=== PATIENT | female | born 1975 | race Caucasian/White ===

== ENCOUNTER 2017-11-16 17:55 | Emergency (ER) | payer BC ==
--- NOTE | 2017-11-16 18:51 | UC ---
UC General HPI - HPI Summary HPI Summary: left back flank and abdomen pain for a couple of day- - History of Current Complaint Hx Obtained From: Patient Hx Last Menstrual Period: 10/24/17 Onset/Duration: Sudden Onset, Lasting Days - 2 Timing: Constant Onset Severity: Moderate Current Severity: Moderate Associated Signs & Symptoms: Positive: Abdominal Pain, Back Pain <Gosia Perez - Last Filed: 11/21/17 15:03> <Lois Pérez - Last Filed: 11/21/17 16:11> - History of Current Complaint Chief Complaint: UCBackPain Stated Complaint: BACK PAIN,L ARM,FACE NUMBNESS Time Seen by Provider: 11/16/17 18:13 - Allergy/Home Medications Allergies/Adverse Reactions: Allergies Allergy/AdvReac Type Severity Reaction Status Date / Time No Known Allergies Allergy Verified 11/16/17 18:03 PMH/Surg Hx/FS Hx/Imm Hx Previously Healthy: Yes - Surgical History Surgical History: Yes Surgery Procedure, Year, and Place: APPENDECTOMY, CHOLECYSTECTOMY - Family History Known Family History: Positive: None - Social History Occupation: Employed Full-time Lives: With Family Alcohol Use: Occasionally Alcohol Amount: 3 GLASSES/WEEK Substance Use Type: None Smoking Status (MU): Never Smoked Tobacco <Gosia Perez - Last Filed: 11/21/17 15:03> Review of Systems Constitutional: Negative Skin: Negative Eyes: Negative ENT: Negative Respiratory: Negative Cardiovascular: Negative Gastrointestinal: Abdominal Pain Genitourinary: Negative Motor: Negative Neurovascular: Negative Musculoskeletal: Arthralgia - laft flank pain Neurological: Negative Psychological: Negative Is Patient Immunocompromised?: No All Other Systems Reviewed And Are Negative: Yes <Gosia Perez - Last Filed: 11/21/17 15:03> Physical Exam Triage Information Reviewed: Yes Appearance: No Pain Distress, Well-Nourished, Ill-Appearing - mild Vital Signs: Initial Vital Signs Temp 98.4 F 11/16/17 17:56 Pulse 72 11/16/17 17:56 Resp 16 11/16/17 17:56 BP 132/87 11/16/17 17:56 Pulse Ox 100 11/16/17 17:56 Vital Signs Reviewed: Yes Eye Exam: Normal Eyes: Positive: Conjunctiva Clear ENT Exam: Normal ENT: Positive: Normal ENT inspection, Hearing grossly normal, Pharynx normal, TMs normal, Uvula midline. Negative: Tonsillar swelling, Tonsillar exudate, Trismus, Muffled voice, Hoarse voice, Dental tenderness, Sinus tenderness Dental Exam: Normal Neck exam: Normal Neck: Positive: Supple, Nontender, No Lymphadenopathy Respiratory Exam: Normal Respiratory: Positive: Chest non-tender, Lungs clear, Normal breath sounds, No respiratory distress, No accessory muscle use Cardiovascular Exam: Normal Cardiovascular: Positive: RRR, No Murmur, Pulses Normal, Brisk Capillary Refill Abdominal Exam: Other Abdomen Description: Positive: No Organomegaly, Soft, CVA Tenderness (L). Negative: CVA Tenderness (R) Bowel Sounds: Positive: Present Musculoskeletal Exam: Normal Musculoskeletal: Positive: Strength Intact, ROM Intact, No Edema Neurological Exam: Normal Neurological: Positive: Alert, Muscle Tone Normal Psychological Exam: Normal Psychological: Positive: Normal Response To Family Skin Exam: Normal <Gosia Perez - Last Filed: 11/21/17 15:03> Vital Signs: Initial Vital Signs Temp 98.4 F 11/16/17 17:56 Pulse 72 11/16/17 17:56 Resp 16 11/16/17 17:56 BP 132/87 11/16/17 17:56 Pulse Ox 100 11/16/17 17:56 <Lois Pérez - Last Filed: 11/21/17 16:11> Diagnostics - Laboratory Diagnostic Studies Completed/Ordered: ua-+2 leuks, +2 blood sg<1.005 - Radiology No standard instances Xray Interpretation: Positive (See Comments) Radiology Interpretation Completed By: Radiologist - colitis decreding colon, no evidence of renal calculi <Gosia Perez - Last Filed: 11/21/17 15:03> Course/Dx - Course Course Of Treatment: Augmentin, clear liquid and advance diet slowly, follow with pcp - Differential Dx - Multi-Symptom Provider Diagnoses: MIld Cololitis, hematuria <Gosia Perez - Last Filed: 11/21/17 15:03> Discharge <Gosia Perez - Last Filed: 11/21/17 15:03> <Lois Pérez - Last Filed: 11/21/17 16:11> - Discharge Plan Condition: Stable Disposition: HOME Prescriptions: Amoxicillin/Clavulanate TAB* [Augmentin TAB 875*] 875 mg PO BID #20 tab Patient Education Materials: Hematuria (ED), Colitis (ED) Referrals: [facility] [place] [facility]IAN REFERRAL [Outside] - 1 Week Attestation Statement User Type: Provider - I was available for consult. This patient was seen by the [facility]. The patient was not presented to, seen by, or examined by me. -William <Lois Pérez - Last Filed: 11/21/17 16:11>
[2017-11-16] MEDS ORDERED: Ketorolac INJ* 60 MG/2 ML VIAL IM ONE (18:58)
--- NOTE | 2017-11-16 19:51 | RAD ---
CLINICAL HISTORY: Left flank pain and hematuria. Relevant surgical history includes appendectomy and cholecystectomy. COMPARISON: None TECHNIQUE: Noncontrast CT examination of the abdomen and pelvis from the lung bases through the initial tuberosities. FINDINGS: VISUALIZED LUNG BASES: The visualized lung bases are grossly clear. There is no pleural effusion. ABDOMEN AND PELVIS: Evaluation of the solid organs and vasculature is limited without intravenous contrast. The liver, spleen, pancreas and adrenal glands are grossly normal in appearance. The gallbladder is normal. The kidneys are normal in appearance without focal mass, calcification or signs of hydronephrosis. Evaluation of the gastrointestinal tract is limited in the absence of oral contrast. The small and large bowel are not distended. There is surgical material the base of the cecum and the appendix is not visualized consistent with the patient's reported surgical history. Involving the descending colon there is questionable wall thickening measuring up to 5 mm in thickness (coronal image 83). There is no gross retroperitoneal or mesenteric lymphadenopathy. The pelvic viscera is normal in appearance. The abdominal aorta and iliac arteries are normal in course and diameter. There are no bone lesions. IMPRESSION: 1. No renal calculi or signs of hydroureteronephrosis. 2. Questionable mild colitis involving the descending colon.
[2017-11-16] MEDS ORDERED: Amoxicillin/Clavulanate TAB* 875 MG PO ONE (20:28)
== END 2017-11-16 20:40 | disposition home or self-care (01) ==
LOC: UCEAST 17:55
DX: K52.9 Noninfective gastroenteritis and colitis, unspecified (principal); R31.9 Hematuria, unspecified; Z90.49 Acquired absence of other specified parts of digestive tract; Z90.89 Acquired absence of other organs
CPT/HCPCS: 74176; 81003; 87086; 99202; A9270-GY; G0463; J1885

== ENCOUNTER 2019-01-14 12:21 | Emergency (ER) | payer BC ==
--- NOTE | 2019-01-14 13:29 | UC ---
Skin Complaint HPI - HPI Summary HPI Summary: uri sinus and nasal congestion for 1 week---noted 3 small swollen areas on left back side of neck--no fevers does have continued nasal congestion - History of Current Complaint Chief Complaint: UCSkin Time Seen by Provider: 01/14/19 13:22 Stated Complaint: LUMPS ON BACK OF NECK Hx Obtained From: Patient Hx Last Menstrual Period: 01/08/19 ?: No Onset/Duration: Sudden Onset, Lasting Days - 1 Timing: Constant Onset Severity: Mild Current Severity: Mild Pain Intensity: 3 Pain Scale Used: 0-10 Numeric Location: Discrete Character: Raised Aggravating Factor(s): Nothing Alleviating Factor(s): Nothing Associated Signs & Symptoms: Positive: Tenderness - Allergy/Home Medications Allergies/Adverse Reactions: Allergies Allergy/AdvReac Type Severity Reaction Status Date / Time No Known Allergies Allergy Verified 01/14/19 13:06 PMH/Surg Hx/FS Hx/Imm Hx Previously Healthy: Yes - Surgical History Surgical History: Yes Surgery Procedure, Year, and Place: APPENDECTOMY, CHOLECYSTECTOMY - Family History Known Family History: Positive: None - Social History Occupation: Employed Full-time Lives: With Family Alcohol Use: Occasionally Alcohol Amount: 3 GLASSES/WEEK Substance Use Type: None Smoking Status (MU): Never Smoked Tobacco Review of Systems All Other Systems Reviewed And Are Negative: Yes Constitutional: Positive: Negative Skin: Positive: Negative Eyes: Positive: Negative ENT: Positive: Nasal Discharge, Sinus Congestion Respiratory: Positive: Negative Cardiovascular: Positive: Negative Gastrointestinal: Positive: Negative Genitourinary: Positive: Negative Motor: Positive: Negative Neurovascular: Positive: Negative Musculoskeletal: Positive: Negative Neurological: Positive: Negative Psychological: Positive: Negative Is Patient Immunocompromised?: No Physical Exam Triage Information Reviewed: Yes Appearance: Well-Appearing, No Pain Distress, Well-Nourished Vital Signs: Initial Vital Signs Temp 98.7 F 01/14/19 13:01 Pulse 66 01/14/19 13:01 Resp 18 01/14/19 13:01 BP 144/93 01/14/19 13:01 Pulse Ox 100 01/14/19 13:01 Vital Signs Reviewed: Yes Eye Exam: Normal Eyes: Positive: Conjunctiva Clear ENT Exam: Normal ENT: Positive: Normal ENT inspection, Hearing grossly normal, Pharynx normal, Nasal congestion, Nasal drainage, TMs normal, Uvula midline, Other - 3 swollen lymph gland left occiput-tender to touch. Negative: Tonsillar swelling, Trismus , Muffled voice, Hoarse voice, Dental tenderness, Sinus tenderness Dental Exam: Normal Neck exam: Normal Neck: Positive: Supple, Nontender, No Lymphadenopathy Respiratory Exam: Normal Respiratory: Positive: Chest non-tender, Lungs clear, Normal breath sounds, No respiratory distress, No accessory muscle use Cardiovascular Exam: Normal Cardiovascular: Positive: RRR, No Murmur, Pulses Normal, Brisk Capillary Refill Musculoskeletal Exam: Normal Musculoskeletal: Positive: Strength Intact, ROM Intact Neurological Exam: Normal Neurological: Positive: Alert, Muscle Tone Normal Psychological Exam: Normal Skin Exam: Normal Course/Dx - Course Course Of Treatment: flonase, mucinex, tylenol, ibuprofen increase fluids follow bp and lympadenopathy with pcp in 3-4 weeks - Diagnoses Provider Diagnosis: URI (upper respiratory infection), Lymphadenopathy of head and neck, Hypertension Discharge - Sign-Out/Discharge Documenting (check all that apply): Patient Departure All imaging exams completed and their final reports reviewed: No Studies - Discharge Plan Condition: Stable Disposition: HOME Prescriptions: Fluticasone NASAL SPRAY 50MCG* [Flonase NASAL SPRAY 50MCG*] 2 spray BOTH NARES DAILY #1 btl Patient Education Materials: Acetaminophen (By mouth), Guaifenesin (By mouth), Lymphadenopathy (ED), Upper Respiratory Infection (ED), Hypertension (ED) Referrals: [facility] [Outside] - If Needed - Billing Disposition and Condition Condition: STABLE Disposition: Home
== END 2019-01-14 13:41 | disposition home or self-care (01) ==
LOC: UCEAST 12:21
DX: J06.9 Acute upper respiratory infection, unspecified (principal); I10 Essential (primary) hypertension; R59.0 Localized enlarged lymph nodes
CPT/HCPCS: 99212; G0463